=== PATIENT | female | born 1945 | race American Indian/Alaskan Native ===

== ENCOUNTER 2017-06-07 07:33 | Day surgery (SDC) | payer MEDICARE ==
[~2017-06-07] VITALS: Ht 147.3 cm; Wt 90.4 kg
[~2017-06-07 07:33] MED LIST: ALBU90OI61 INH; ASPI81CH PO; CIPR250 PO; DULO30 PO; ERGO400 PO; FLUSAL5005 INH; HYDACE5325 PO; HYDCHL25 PO; LEVSOD25 PO; LOPE2C PO; LOSA50 PO; MAGOXI400 PO; METR250 PO; MULVITMINE PO; OXYACE5T PO; POTASSIUM GLUCONATE PO; SIMV10 PO; SIMV40 PO; TRAZ50 PO; Verotin-Gr Cap1 EACH PO
[2017-06-07] MEDS ORDERED: POTCHL10ER PO (08:35)
[2017-07-18] MEDS ORDERED: Prozac20 MG PO (16:51)
== END 2017-06-07 12:15 | disposition home or self-care (01) ==
LOC: ORSCSDS 07:33
PROVIDERS: Student in an Organized Health Care Education/Training Program
PROC: 0L8W0ZZ Division of Left Foot Tendon, Open Approach (ICD-10-PCS; principal; 2017-06-07 09:00)
PROC: 0SGQ04Z Fusion of Left Toe Phalangeal Joint with Internal Fixation Device, Open Approach (ICD-10-PCS; principal; 2017-06-07 09:00)
DX: M20.42 Other hammer toe(s) (acquired), left foot (principal); M19.072 Primary osteoarthritis, left ankle and foot; M79.672 Pain in left foot; I10 Essential (primary) hypertension; J45.909 Unspecified asthma, uncomplicated; J44.9 Chronic obstructive pulmonary disease, unspecified; Z87.891 Personal history of nicotine dependence; Z86.73 Personal history of transient ischemic attack (TIA), and cerebral infarction without residual deficits; Z79.899 Other long term (current) drug therapy
CPT/HCPCS: J0690; J1100; J2250; J2370; J2405; J3010; J7120

== ENCOUNTER 2017-07-24 05:57 | Inpatient (IN) | payer MEDICARE ==
[~2017-07-24] VITALS: Ht 172.7 cm; Wt 90.3 kg
[~2017-07-24 05:57] MED LIST changes: +POTCHL10ER PO; +Prozac20 MG PO
[2017-07-25 04:05] LABS: BASOPHILS ABSOLUTE AUTO 0.03 K/mm3 (0.00-0.23); BASOPHILS PERCENT AUTO 1 % (0-2); EOSINOPHILS ABSOLUTE AUTO 0.08 K/mm3 (0.00-0.68); EOSINOPHILS PERCENT AUTO 1 % (0-6); Hematocrit 30.8 % (33.0-51.0); Hemoglobin 9.9 g/dL (11.5-16.0); IMMATURE GRAN ABSOLUTE AUTO 0.01 K/mm3 (0.00-0.10); IMMATURE GRAN PERCENT AUTO 0 % (0-1); LYMPHOCYTES ABSOLUTE AUTO 1.59 K/mm3 (0.84-5.20); LYMPHOCYTES PERCENT AUTO 27 % (21-46); MONOCYTES ABSOLUTE AUTO 0.71 K/mm3 (0.16-1.47); MONOCYTES PERCENT AUTO 12 % (4-13); Mean Corpuscular HGB 31.8 pg (26.0-34.0); Mean Corpuscular HGB Conc 32.1 g/dL (31.5-36.5); Mean Corpuscular Volume 99 fL (80-100); Mean Platelet Volume 9.9 fL (9.1-12.4); NEUTROPHILS ABSOLUTE AUTO 3.47 K/mm3 (1.96-9.15); NEUTROPHILS PERCENT AUTO 59 % (41-73); Platelet Count 150 K/mm3 (150-400); RDW Coefficient Variation 12.9 % (11.7-14.2); RDW Standard Deviation 46.5 fL (35.1-46.3); Red Blood Cell Count 3.11 M/mm3 (3.80-5.20); White Blood Cell Count 5.89 K/mm3 (4.00-11.30)
[2017-07-25 04:35] LABS: Albumin, Blood 2.4 g/dL (3.4-5.0); Albumin/Globulin Ratio 0.8 (0.8-1.8); Bilirubin, Total 0.7 mg/dL (0.1-1.0); Bun/Creatinine Ratio 9.8 (12.0-20.0); Calcium, Blood 7.9 mg/dL (8.5-10.1); Creatinine, Blood 1.22 mg/dL (0.40-1.00); Potassium, Blood 3.7 mmol/L (3.5-5.5); Total Protein, Blood 5.4 g/dL (6.4-8.2)
[2017-07-26] MEDS ORDERED: Percocet 7.5-31 EACH PO (15:40)
== END 2017-07-27 10:15 | disposition home or self-care (01) | DRG 416 ==
LOC: ORSCMMR 05:57 → ORD 07:30 → ORSCMMR 07:30 → SURS 09:38 → ORSCMMR 09:38 → SURS 07-27 10:15
PROVIDERS: Surgery
PROC: 0FJ44ZZ Inspection of Gallbladder, Percutaneous Endoscopic Approach (ICD-10-PCS; 2017-07-24)
PROC: 0FT40ZZ Resection of Gallbladder, Open Approach (ICD-10-PCS; principal; 2017-07-24 07:30)
DX: K80.20 Calculus of gallbladder without cholecystitis without obstruction (principal); K66.0 Peritoneal adhesions (postprocedural) (postinfection); I10 Essential (primary) hypertension; E78.5 Hyperlipidemia, unspecified; F32.9 Major depressive disorder, single episode, unspecified; J44.9 Chronic obstructive pulmonary disease, unspecified; G47.33 Obstructive sleep apnea (adult) (pediatric); Z88.8 Allergy status to other drugs, medicaments and biological substances; Z79.899 Other long term (current) drug therapy; Z87.891 Personal history of nicotine dependence
CPT/HCPCS: 36415; 80053; 85025; 88304; 94640; 94760; C1729; J0690; J1650; J1885; J2250; J2370; J2405; J2710; J2765; J3010; J7030; J7120

== ENCOUNTER → 2018-10-26 | Outpatient (CLI) | payer MEDICARE ==
[~2018-10-26] MED LIST changes: +Percocet 7.5-31 EACH PO
== END | disposition home or self-care (01) ==
LOC: LAB SHORT 12:50 → LAB EV 12:50
DX: N39.0 Urinary tract infection, site not specified (principal)
CPT/HCPCS: 87077; 87086; 87186

== ENCOUNTER → 2019-06-30 | Outpatient (CLI) | payer MEDICARE | LOC: LAB SHORT 14:30 | DX: N39.0 Urinary tract infection, site not specified (principal) | CPT/HCPCS: 87086 ==

== ENCOUNTER 2020-09-29 10:47 | Day surgery (SDC) | payer MEDICARE ==
[~2020-09-29] VITALS: Ht 170.2 cm; Wt 98.3 kg
[2020-09-29] MEDS ORDERED: DULO60 PO (11:13)
[2020-09-29] MEDS ORDERED: AMLO5 PO (11:13)
== END 2020-09-29 11:43 | disposition home or self-care (01) ==
LOC: ORSCSDS 10:47
PROVIDERS: Anesthesiology
PROC: 3E0R33Z Introduction of Anti-inflammatory into Spinal Canal, Percutaneous Approach (ICD-10-PCS; principal; 2020-09-29 11:45)
DX: M51.16 Intervertebral disc disorders with radiculopathy, lumbar region (principal); I10 Essential (primary) hypertension; J44.9 Chronic obstructive pulmonary disease, unspecified; E78.00 Pure hypercholesterolemia, unspecified; F32.9 Major depressive disorder, single episode, unspecified; Z87.891 Personal history of nicotine dependence; E66.9 Obesity, unspecified; Z68.34 Body mass index [BMI] 34.0-34.9, adult; Z79.899 Other long term (current) drug therapy
CPT/HCPCS: J1040

== ENCOUNTER 2020-10-29 09:51 | Day surgery (SDC) | payer MEDICARE ==
[~2020-10-29] VITALS: Ht 170.2 cm; Wt 98.0 kg
[~2020-10-29 09:51] MED LIST changes: +AMLO5 PO; +DULO60 PO
== END 2020-10-29 10:45 | disposition home or self-care (01) ==
LOC: ORSCSDS 09:51
DX: M54.16 Radiculopathy, lumbar region (principal); Z87.891 Personal history of nicotine dependence; J44.9 Chronic obstructive pulmonary disease, unspecified; I10 Essential (primary) hypertension; J45.909 Unspecified asthma, uncomplicated; N18.9 Chronic kidney disease, unspecified; Z79.899 Other long term (current) drug therapy
CPT/HCPCS: J1040

== ENCOUNTER 2021-03-22 08:33 | Day surgery (SDC) | payer MEDICARE ==
[~2021-03-22] VITALS: Ht 170.2 cm; Wt 96.3 kg
--- NOTE | 2021-03-22 08:59 | NUR ---
History, Chart, Medications and Allergies reviewed before start of procedure. Patient confirms NPO status and agrees with scheduled surgery. Lungs clear T/O to Auscultation.
--- NOTE | 2021-03-22 14:42 | NUR ---
PT BACK FROM O.R. AT AROUND 1245. NO C/O PAIN OR NAUSEA AT THIS TIME. PT TOLERATING PO INTAKE WELL. PT STILL FAIRLY NUMB FROM SPINAL. NOW ABLE TO MOVE HER LEGS BUT NUMB TO ABOUT THE CALF AREA.
[2021-03-22] MEDS ORDERED: ASPI81CH PO (17:58)
[2021-03-22] MEDS ORDERED: Percocet 5-3251 EACH PO (18:01)
--- NOTE | 2021-03-22 18:28 | NUR ---
SHIFT SUMMARY PT A/O X4 AND STATUS POST FOR R TOTAL KNEE. PT HAD A SPINAL DONE AND IS NO LONGER NUMB. VOIDED IN THE BSC AND WORKED WITH PHYSICAL THERAPY. PT'S PAIN CURRENTLY NOT CONTROLLED WITH PO PAIN MEDS. SEE EMR. AQUACEL AND JINNY WRAP DRESSING IN PLACE AND CDI. VSS. CURRENTLY UP IN THE RECLINER WITH HER CALL LIGHT IN REACH. WILL REPORT TO YONY BEDOYA.
--- NOTE | 2021-03-23 03:31 | NUR ---
Alert and oriented x'4 . Medicated patient for pain management, effective relief. Cool therapy in place to right knee. Dresssing clean dry and intact. Currently standy by assist while ambulating with walker. Tolerated meds well, slept well through night. Safety maintained.
[2021-03-23 05:29] LABS: BASOPHILS ABSOLUTE AUTO 0.02 K/mm3 (0.00-0.23); BASOPHILS PERCENT AUTO 0 % (0-2); EOSINOPHILS PERCENT AUTO 0 % (0-6); Hematocrit 37.1 % (33.0-51.0); IMMATURE GRAN ABSOLUTE AUTO 0.04 K/mm3 (0.00-0.10); IMMATURE GRAN PERCENT AUTO 0 % (0-1); LYMPHOCYTES PERCENT AUTO 7 % (21-46); MONOCYTES ABSOLUTE AUTO 0.57 K/mm3 (0.16-1.47); MONOCYTES PERCENT AUTO 5 % (4-13); Mean Corpuscular HGB 29.3 pg (26.0-34.0); Mean Corpuscular HGB Conc 32.3 g/dL (31.5-36.5); Mean Corpuscular Volume 91 fL (80-100); Mean Platelet Volume 11.3 fL (9.1-12.4); NEUTROPHILS ABSOLUTE AUTO 10.71 K/mm3 (1.96-9.15); NEUTROPHILS PERCENT AUTO 87 % (41-73); Platelet Count 207 K/mm3 (150-400); RDW Coefficient Variation 12.9 % (11.7-14.2); RDW Standard Deviation 42.9 fL (35.1-46.3); Red Blood Cell Count 4.09 M/mm3 (3.80-5.20); White Blood Cell Count 12.24 K/mm3 (4.00-11.30)
[2021-03-23 06:49] LABS: Bun/Creatinine Ratio 15.9 (12.0-20.0); Calcium, Blood 9.5 mg/dL (8.5-10.1); Creatinine, Blood 1.13 mg/dL (0.40-1.00); Potassium, Blood 4.7 mmol/L (3.5-5.5)
--- NOTE | 2021-03-23 11:40 | NUR ---
DISCHARGE SUMMARY PT POD #1 FOR R TOTAL KNEE. VOIDING AND TOLERATING PO INTAKE WELL. WORKED WITH PHYSICAL THERAPY TODAY AND DID WELL. HOWEVER, SHE DID BECOME DIZZY AND SLIGHTLY NAUSEOUS DUE TO GETTING OVERHEATED. PT REPORTS THAT THIS HAS BEEN AN ISSUE FOR HER PRIOR TO HAVING SURGERY. PT INSTRUCTED TO IMMEDIATELY SIT DOWN IF SHE FEELS LIKE THAT AGAIN. PT VERBALIZED UNDERSTANDING. PRESENT AND VERY SUPPORTIVE. PT PAIN CONTROLLED WITH ORAL PAIN MEDICATION. HOWEVER, PT VERBALIZED CONCERN ABOUT TAKING THE MEDICATION EVERY 6 HOURS INSTEAD OF 4 WHILE AT HOME. PT HAS BEEN REQUIRING PAIN MEDS CLOSER TO THE 4 HOUR CHARLES. THIS RN INSTRUCTED THE PT TO CONTACT DR. MORRISSEY IF HER CURRENT PRESCRIPTION DOES NOT RELIEVE HER PAIN. PT VERBALIZED UNDERSTANDING. AQUACEL AND JINNY WRAP DRESSING IN PLACE AND CDI. VSS. PT DC'D HOME WITH .
== END 2021-03-23 12:12 | disposition home or self-care (01) ==
LOC: ORSCMMR 08:33 → ORD 10:00 → ORSCMMR 10:00 → SURS 12:36 → ORSCMMR 03-23 12:12 → ORD 03-29 10:00
PROVIDERS: Orthopaedic Surgery
PROC: 8E0Y0CZ Robotic Assisted Procedure of Lower Extremity, Open Approach (ICD-10-PCS; principal; 2021-03-22 10:00)
PROC: 0SRC0JA Replacement of Right Knee Joint with Synthetic Substitute, Uncemented, Open Approach (ICD-10-PCS; principal; 2021-03-22 10:00)
DX: M17.11 Unilateral primary osteoarthritis, right knee (principal); I10 Essential (primary) hypertension; J44.9 Chronic obstructive pulmonary disease, unspecified; G47.33 Obstructive sleep apnea (adult) (pediatric); Z87.891 Personal history of nicotine dependence; N18.9 Chronic kidney disease, unspecified; Z79.899 Other long term (current) drug therapy; E66.9 Obesity, unspecified; Z68.33 Body mass index [BMI] 33.0-33.9, adult
CPT/HCPCS: 27447; S2900; 36415; 73560-RT; 80048; 85025; 94640; 94664; 94760; 97110; 97110-CQ; 97116-CQ; 97161; 97530-CQ; A9270; C1776; J0171; J0690; J0735; J1100; J1170; J1885; J2250; J2405; J2704; J2795; J7120

== ENCOUNTER → 2021-10-02 | Outpatient (CLI) | payer MEDICARE ==
[~2021-10-02] MED LIST changes: +Percocet 5-3251 EACH PO
== END | disposition home or self-care (01) ==
LOC: LAB SHORT 12:52 → LAB 12:52
DX: N39.0 Urinary tract infection, site not specified (principal)
CPT/HCPCS: 87086

== ENCOUNTER 2022-02-21 08:56 | Day surgery (SDC) | payer MEDICARE ==
[~2022-02-21] VITALS: Ht 170.2 cm; Wt 99.9 kg
--- NOTE | 2022-02-21 14:29 | NUR ---
SENSATION FELT AT BOTTOM OF FEET, BILATERAL.
--- NOTE | 2022-02-21 15:32 | NUR ---
BLADDER SCANNED, 123ML SITED. NO INDICATION FOR CATHETER.
--- NOTE | 2022-02-21 19:19 | NUR ---
SHIFT SUMMARY POD0 L TKA, A/OX4, VSS, TOLERATING PO, CAME OUT FROM PACU LATE AND WAS PAINFUL REPORTING NERVE BLOCK LOSING EFFECTIVENESS, PAIN MEDICATION GIVEN, PT REPORTS NOT WANTING TO TAKE ANY OF OUR MEDICATIONS OTHER THAN PAIN MEDS, PT REPORTS SHE WILL ONLY TAKE HER OWN TYLENOL AND OTHER ORDERD MEDICATIONS, EDUCATED PT ON GETTING UP BEFORE MIDNIGHT AND BEARING WEIGHT ON L KNEE. NO ACUTE EVENTS THIS SHIFT, CALL LIGHT IN REACH, REPORT GIVEN TO NOC RN AT BEDSIDE.
[2022-02-22 05:23] LABS: BASOPHILS ABSOLUTE AUTO 0.01 K/mm3 (0.00-0.23); BASOPHILS PERCENT AUTO 0 % (0-2); EOSINOPHILS PERCENT AUTO 0 % (0-6); Hematocrit 34.6 % (33.0-51.0); Hemoglobin 11.3 g/dL (11.5-16.0); IMMATURE GRAN ABSOLUTE AUTO 0.02 K/mm3 (0.00-0.10); IMMATURE GRAN PERCENT AUTO 0 % (0-1); LYMPHOCYTES ABSOLUTE AUTO 0.76 K/mm3 (0.84-5.20); LYMPHOCYTES PERCENT AUTO 8 % (21-46); MONOCYTES ABSOLUTE AUTO 0.46 K/mm3 (0.16-1.47); MONOCYTES PERCENT AUTO 5 % (4-13); Mean Corpuscular HGB 30.5 pg (26.0-34.0); Mean Corpuscular HGB Conc 32.7 g/dL (31.5-36.5); Mean Corpuscular Volume 94 fL (80-100); Mean Platelet Volume 10.6 fL (9.1-12.4); NEUTROPHILS ABSOLUTE AUTO 8.37 K/mm3 (1.96-9.15); NEUTROPHILS PERCENT AUTO 87 % (41-73); Platelet Count 170 K/mm3 (150-400); RDW Coefficient Variation 12.5 % (11.7-14.2); RDW Standard Deviation 43.6 fL (35.1-46.3); White Blood Cell Count 9.62 K/mm3 (4.00-11.30)
[2022-02-22 05:28] LABS: Bun/Creatinine Ratio 17.9 (12.0-20.0); Calcium, Blood 9.2 mg/dL (8.5-10.1); Creatinine, Blood 1.12 mg/dL (0.40-1.00); Potassium, Blood 4.8 mmol/L (3.5-5.5)
--- NOTE | 2022-02-22 06:34 | NUR ---
POD 1 S/P LEFT TKA. PT VSS T/O NIGHT. DRESSING CDI. PT REP FULL SENSATION, DENIED N/T, CAP REFILL WNL. PT DID STRUGGLE W/BACK PAIN ALONG W/POST OP KNEE PAIN. MED W/10MG OXYCODONE +SCHEDULED TYLENOL/TORADOL W/SOME RELIEF. PT DECLINED IV NARCOTIC MEDS. PT REFUSED ALL SCHEDULED MEDS EXCEPT ABX AND PAIN MEDS, STATES SHE WISHES TO TAKE HOME MEDS WHEN BRINGS THEM IN THIS AM. PT BETTIE REG PO, DENIED N/V, IS VOIDING URINE W/O DIFFICULTY. PT AMB W/FWW+SBA, BETTIE WELL. PT SITTING UP IN CHAIR THIS AM. PLAN TO MOBILIZE W/PT ADN DC HOME WHEN CLEARED.
[2022-02-22] MEDS ORDERED: Percocet 5-3251 EACH PO (11:43)
[2022-02-22] MEDS ORDERED: ASPI81CH PO (11:44)
--- NOTE | 2022-02-22 12:04 | NUR ---
DISCHARGE SUMMARY PT A&OX4, VSS/RA, BETTIE PO, VOIDING WELL, AMB SBA FWW/UP TO CHAIR, PAIN MANAGED WITH 06/30, IV DC'D. DC INS PROVIDED. PT REP UNDERSTANDING THOSE INSTRUCT INCLUDING FU WITH , [facility], PAIN MANAGEMENT, SHORT FREQ AMB/FWW AND ICE/ELEVATE AT REST, OK TO SHOWER, DRESSING CHANGES. LEFT FLOOR VIA WC WITH CHIEF [employer] TO GO HOME WITH , WITH ALL PERSONAL POSSESSIONS INCLUDING AQUACEL X2, DC INS, 1 NARC SCRIPT AND 1 ASA 81MG SCRIPT.
== END 2022-02-22 11:55 | disposition home or self-care (01) ==
LOC: ORSCMMR 08:56 → ORD 10:00 → ORSCMMR 10:00 → ORD 11:15 → SURS 15:42 → ORSCMMR 02-22 11:55
PROVIDERS: Orthopaedic Surgery
PROC: 8E0Y0CZ Robotic Assisted Procedure of Lower Extremity, Open Approach (ICD-10-PCS; principal; 2022-02-21 10:00)
PROC: 0SRD0J9 Replacement of Left Knee Joint with Synthetic Substitute, Cemented, Open Approach (ICD-10-PCS; principal; 2022-02-21 10:00)
DX: M17.12 Unilateral primary osteoarthritis, left knee (principal); Z96.651 Presence of right artificial knee joint; J44.9 Chronic obstructive pulmonary disease, unspecified; G47.33 Obstructive sleep apnea (adult) (pediatric); I12.9 Hypertensive chronic kidney disease with stage 1 through stage 4 chronic kidney disease, or unspecified chronic kidney disease; N18.1 Chronic kidney disease, stage 1; E78.5 Hyperlipidemia, unspecified; F41.8 Other specified anxiety disorders; E66.9 Obesity, unspecified; Z68.34 Body mass index [BMI] 34.0-34.9, adult; Z79.899 Other long term (current) drug therapy; Z87.891 Personal history of nicotine dependence
CPT/HCPCS: 27447; 20985; S2900; 36415; 73560-LT; 80048; 85025; 94760; 97110; 97116; 97161; 97530; A9270; C1713; C1776; J0171; J0690; J0735; J1100; J1170; J1885; J2250; J2370; J2405; J2704; J2795; J3010; J7120

== ENCOUNTER 2022-08-19 17:39 | Emergency (ER) | payer MEDICARE ==
[~2022-08-19] VITALS: Ht 170.2 cm; Wt 98.9 kg
[2022-08-19 17:46] VITALS: BP 166/96
== END 2022-08-19 19:26 | disposition home or self-care (01) ==
LOC: ER 17:39
DX: S00.83XA Contusion of other part of head, initial encounter (principal); W18.30XA Fall on same level, unspecified, initial encounter; Z88.8 Allergy status to other drugs, medicaments and biological substances; Z79.899 Other long term (current) drug therapy; Z79.82 Long term (current) use of aspirin; Z87.891 Personal history of nicotine dependence
CPT/HCPCS: 70450; 99284-25

== ENCOUNTER → 2023-01-25 | Outpatient (CLI) | payer MEDICARE | END | disposition home or self-care (01) | LOC: LAB SHORT 13:01 → PLD 13:01 | DX: D48.5 Neoplasm of uncertain behavior of skin (principal) | CPT/HCPCS: 88304 ==